=== PATIENT | male | born 1965 | race Caucasian/White ===

== ENCOUNTER → 2019-02-09 | Outpatient (CLI) | payer OTHER ==
[~2019-02-09] MED LIST: ASPIRIN 81M81 MG/TA2 PO; CLARITIN 1010 MG/TAB PO; EPA FISH OIL1000 MG PO; EPIPEN 2-PAK1 MG/ML IM; MEDROL 4MG DOSPA4 MG PO; MOTRIN 800800 MG/TAB PO; NORCO 325 MG-51 TAB PO; PREDNISONE10 MG PO; PREDNISONE20 MG PO; ZINC15 M1 PO; ZITHROMAX Z PA250 MG PO
== END ==
LOC: COL.RAD 07:58
DX: K76.0 Fatty (change of) liver, not elsewhere classified (principal); N28.89 Other specified disorders of kidney and ureter